=== PATIENT | male | born 1970 | race Caucasian/White ===

== ENCOUNTER 2024-03-28 21:44 | Emergency (ER) | payer OTHER ==
[~2024-03-28] VITALS: Ht 167.6 cm; Wt 93.2 kg
[2024-03-28] MEDS: SODIUM CHLORIDE 0.9% 1,000 ML IV ONE (00:15)
[2024-03-28] MEDS: OXYMETAZOLINE HCL 0.05 % NASAL SPRAY 15ML EACHNOSTRI ONE (22:15)
[2024-03-28] MEDS: SILVER NITRATE-POTAS NITRA STICK TOP ONE (22:15)
--- NOTE | 2024-03-28 22:25 | ED.PDOC ---
History of Present Illness HPI Comments 53-year-old male came to ER by EMS for syncope. Patient has history of hypertension and diabetes. Was having left-sided epistaxis earlier, so patient decided to they 3 tablets of lisinopril, assuming that his blood pressure must be a high, which caused the epistaxis. Started feeling dizzy, lightheaded the s yncopal attack, hitting the back of his head on the refrigerator. Upon arrival of paramedics, noted patient to be hypotensive at 84/50 mm Hg. 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 Cardiac: No chest pain. No palpitations. Lungs: No shortness of breath, no cough. GI: No nausea, no vomiting, no diarrhea, no constipation, no abdominal pain : No dysuria, frequency, or urgency. No hematuria. Musculoskeletal: Left 2nd toe pain Skin: No rash, no itching. Neuro: No headache, (+) dizziness, (+) syncope, no weakness Vital Signs Vital Signs Date Time Temp Pulse Resp B/P (MAP) Pulse Ox O2 Delivery O2 Flow Rate FiO2 03/29/24 04:42 96 16 112/66 (81) 03/29/24 02:46 98.1 98.1 03/29/24 00:44 98 Room Air* 0 21 Physical Exam General: Awake, alert and oriented. No acute distress. Skin: Skin in warm, dry and intact. Appropriate color for ethnicity. Nailbeds pink with no cyanosis. HEENT: The head is normocephalic and atraumatic. Conjunctivae are clear without exudates or hemorrhage. Sclera is non-icteric. EOM are intact. No signs of nystagmus. Eyelids are normal in appearance without swelling or lesions. Oral mucosa is pink and moist Neck: The neck is supple with normal range of motion. No JVD. Cardiac: Heart rate and rhythm are normal. No murmurs, gallops, or rubs are auscultated. Respiratory: No signs of respiratory distress. Lung sounds are clear in all lobes bilaterally without rales, ronchi, or wheezes. Abdominal: Abdomen is soft, non-tender without distention. Bowel sounds are present and normoactive in all four quadrants. Extremities: Left 2nd toe is obviously deformed /deviated no laceration bruising or swelling Neurological: The patient is awake, alert and oriented to person, place, and time with normal speech. Speech is clear. There is no facial asymmetry. Psychiatric: Appropriate mood and affect. Good judgement and insight. Past Medical History PAST MEDICAL HISTORY: DM, HTN Surgical History: Denies all surgeries Family History Family History: Reviewed,noncontributory to illness Social History Smoker: Non-Smoker Alcohol: Denies ETOH Use Drugs: Denies Drug Use Lives In: Home Was a procedure done? Was a procedure done?: Yes Sedation Sedation?: No Informed consent obtained: Yes (Verbal) Other Procedure Procedure Reduction of right 2nd toe distal phalanx. EKG EKG : Pulse Rate (adult): 94 Cardiac Rhythm: NSR ST: Old, Inf, Infarct Comments No STEMI Differential Dx Considerations may include: Anemia, electrolyte imbalance, hypotension, syncope, epistaxis X-Ray, Labs, Meds, VS Vital Signs Date Time Temp Pulse Resp B/P (MAP) Pulse Ox O2 Delivery O2 Flow Rate FiO2 03/29/24 04:42 96 16 112/66 (81) 03/29/24 04:00 84 03/29/24 03:09 118/70 03/29/24 02:46 98.1 90 14 118/65 (82) 98.1 03/29/24 00:55 98.1 103 16 107/58 (74) 98.1 03/29/24 00:44 84 16 98 Room Air* 0 21 03/29/24 00:00 103 03/28/24 22:25 94 03/28/24 21:57 94 03/28/24 21:48 97.8 84 16 108/62 (77) 98 Lab Test 03/29/24 01:30 03/28/24 23:15 03/28/24 22:21 Range/Units Urine Color Light-yellow Yellow Urine Clarity Clear Clear Urine pH 5.5 5.0-9.0 Urine Specific [place] 1.021 1.001-1.035 Urine Protein Negative Negative Urine Ketones 1+ H Negative Urine Blood Negative Negative /uL Urine Nitrite Negative Negative Urine Bilirubin Negative Negative Urine Urobilinogen Normal Negative mg/dL Urine Leukocyte Esterase Negative Negative /uL Urine RBC <1 0 - 3 /hpf Urine Microscopic WBC 1 0-3 /HPF Urine Squamous Epithelial Cells Few <5 /hpf Urine Bacteria Few H None Seen /hpf Urine Hyaline Casts Few 0 - 2 /lpf Urine Glucose 4+ H Normal mg/dL Troponin I High Sensitivity < 3 L < 3 L </=54 ng/L White Blood Count 11.8 H 4.4-10.8 10^3/uL Red Blood Count 3.91 L 4.5-5.90 10^6/uL Hemoglobin 12.8 L 13.5-17.5 g/dL Hematocrit 37.1 L 41.0-53.0 % Mean Corpuscular Volume 95.0 80.0-100.0 fL Mean Corpuscular Hemoglobin 32.7 H 28.0-32.0 pg Mean Corpuscular Hemoglobin Concent 34.5 32.0-36.0 g/dL Red Cell Distribution Width 12.8 11.8-14.3 % Platelet Count 219 140-450 10^3/uL Mean Platelet Volume 8.7 6.9-10.8 fL Neutrophils (%) (Auto) 70.9 37.0-80.0 % Lymphocytes (%) (Auto) 21.6 10.0-50.0 % Monocytes (%) (Auto) 6.6 0.0-12.0 % Eosinophils (%) (Auto) 0.7 0.0-7.0 % Basophils (%) (Auto) 0.2 0.0-2.0 % Neutrophils # (Auto) 8.4 1.6-8.6 10 ^3/uL Lymphocytes # (Auto) 2.5 0.4-5.4 10 ^3/uL Monocytes # (Auto) 0.8 0-1.3 10 ^3/uL Eosinophils # (Auto) 0.1 0-0.8 10 ^3/uL Basophils # (Auto) 0 0-0.2 10 ^3/uL Nucleated Red Blood Cells 0.2 % Prothrombin Time 10.9 9.3-11.8 sec Prothrombin Time INR 1.03 0.9-1.15 Sodium Level 137 136-145 mmol/L Potassium Level 4.6 3.5-5.1 mmol/L Chloride Level 103 98-107 mmol/L Carbon Dioxide Level 26 20-31 mmol/L Anion Gap 8 5-15 Blood Urea Nitrogen 23 9-23 mg/dL Creatinine 1.43 H 0.700-1.30 mg/dL Glomerular Filtration Rate Calc 58 >90 mL/min BUN/Creatinine Ratio 16.1 10.0-20.0 Serum Glucose 304 H 74-106 mg/dL Calcium Level 9.0 8.7-10.4 mg/dL Total Bilirubin 0.2 0.2-1.0 mg/dL Aspartate Amino Transferase (AST) 39 13-40 U/L Alanine Aminotransferase (ALT) 72 H 7-40 U/L Alkaline Phosphatase 62 46-116 U/L B-Type Natriuretic Peptide 2.45 0-100 pg/mL Total Protein 6.4 5.7-8.2 g/dL Albumin 3.8 3.2-4.8 g/dL Current Medications Medications (Trade) Dose Ordered Sig/Frida Route Start Time Stop Time Status Last Admin Sodium Chloride 1,000 ml @ 1,000 mls/hr Q1H ONCE IV 03/28/24 22:15 03/28/24 23:14 DC 03/28/24 00:15 Oxymetazoline HCl (Afrin) 1 spr ONCE ONCE EACHNOSTRI 03/28/24 22:15 03/28/24 22:16 DC 03/28/24 22:15 Fentanyl Citrate 50 mcg ONCE ONCE IV 03/29/24 03:00 03/29/24 03:01 DC 03/29/24 03:09 Sodium Chloride 1,000 ml @ 1,000 mls/hr Q1H ONCE IV 03/29/24 05:00 03/29/24 05:59 DC 03/29/24 05:00 Time of 1ST Reevaluation: 22:19 Reevaluation 1ST: Unchanged Patient Education/Counseling: Diagnosis, Treatment Family Education/Counseling: No Family Present Departure 1 Departure Time of Disposition: 04:51 Impression: Primary Impression: Dislocation of toe of left foot Additional Impressions: Syncope Accidental medication overdose Epistaxis Disposition: 01 HOME / SELF CARE / HOMELESS Condition: Stable Additional Instructions: ED DISCHARGE INSTRUCTIONS Instructions: Please read all instructions provided in this packet carefully. Although you have been discharged from the Emergency Department, this does not mean that you have a "clean bill of health". []No definitive diagnosis for your symptoms has been made today. It is possible that you are in the process of developing a serious illness. This is why you must return to the ED without fail if any new or worsening symptoms (especially if your symptoms include chest pain, trouble breathing, abdominal pain, fever, headache, confusion, trouble seeing, or trouble walking) It is also very important that you see a primary care doctor within the next 3-5 days to follow up. If you are unable to get an appointment, return to the ED for re-evaluation. Lightheadedness or Faintness: Care Instructions Overview Lightheadedness is a feeling that you are about to faint or "pass out." You do not feel as if you or your surroundings are moving. It is different from vertigo, which is the feeling that you or things around you are spinning or tilting. Lightheadedness usually goes away or gets better when you lie down. If lightheadedness gets worse, it can lead to a fainting spell. It is common to feel lightheaded from time to time. It may be caused by many things. These include allergies, dehydration, illness, and medicines. Lightheadedness usually is not caused by a serious problem. It often is caused by a short-lasting drop in blood pressure and blood flow to your head that occurs when you get up too quickly from a seated or lying position. Follow-up care is a bush part of your treatment and safety. Be sure to make and go to all appointments, and call your doctor if you are having problems. It's also a good idea to know your test results and keep a list of the medicines you take. How can you care for yourself at home? Lie down for 1 or 2 minutes when you feel lightheaded. After lying down, sit up slowly and remain sitting for 1 to 2 minutes before slowly standing up. Avoid movements, positions, or activities that have made you lightheaded in the past. Get plenty of rest, especially if you have a cold or flu, which can cause lightheadedness. Make sure you drink plenty of fluids, especially if you have a fever or have been sweating. Do not drive or put yourself and others in danger while you feel lightheaded. When should you call for help? Call 911 anytime you think you may need emergency care. For example, call if: You passed out (lost consciousness). You have symptoms of a stroke. These may include: Sudden numbness, tingling, weakness, or loss of movement in your face, arm, or leg, especially on only one side of your body. Sudden vision changes. Sudden trouble speaking. Sudden confusion or trouble understanding simple statements. Sudden problems with walking or balance. A sudden, severe headache that is different from past headaches. You have symptoms of a heart attack. These may include: Chest pain or pressure, or a strange feeling in the chest. Sweating. Shortness of breath. Nausea or vomiting. Pain, pressure, or a strange feeling in the back, neck, jaw, or upper belly or in one or both shoulders or arms. Lightheadedness or sudden weakness. A fast or irregular heartbeat. After you call 911, the can closing machine operator may tell you to chew 1 adult-strength or 2 to 4 low-dose aspirin. Wait for an ambulance. Do not try to drive yourself. Watch closely for changes in your health, and be sure to contact your doctor if: Your lightheadedness gets worse or does not get better with home care. Credits for Lightheadedness or Faintness: Care Instructions Current as of: September 19, 2023 Author: Eneida [employer] Staff Clinical Review Board All [employer] education is reviewed by a team that includes physicians, nurses, advanced practitioners, registered dieticians, and other healthcare professionals. Nosebleeds: Care Instructions Overview Nosebleeds are common, especially if you have colds or allergies. Many things can cause a nosebleed. Some nosebleeds stop on their own with pressure. Others need packing. Some get cauterized (sealed). If you have gauze or other packing materials in your nose, you will need to follow up with your doctor to have the packing removed. You may need more treatment if you get nosebleeds a lot. Follow-up care is a bush part of your treatment and safety. Be sure to make and go to all appointments, and call your doctor if you are having problems. It's also a good idea to know your test results and keep a list of the medicines you take. How can you care for yourself at home? If you get another nosebleed: Gently blow your nose to clear any clots. Sit up and tilt your head slightly forward. This keeps blood from going down your throat. Use your thumb and index finger to pinch the front, soft part of your nose shut for at least 15 minutes. Use a clock. Do not check to see if the bleeding has stopped before the 15 minutes are up. If the bleeding has not stopped, pinch your nose shut for another 10 to 15 minutes. Using a nasal decongestant spray such as oxymetazoline (Afrin) before pinching your nose can also help to stop the bleeding. Be safe with medicines. Read and follow all instructions on the label. When the bleeding has stopped, try not to pick, rub, or blow your nose for leighann ral hours. Avoiding these things helps keep your nose from bleeding again. To prevent nosebleeds Do not blow your nose too hard. Try not to lift or strain after a nosebleed. Raise your head on a pillow while you sleep. Put a thin layer of a saline- or water-based nasal gel, such as NasoGel, inside your nose. Put it on the septum, which divides your nostrils. This will prevent dryness that can cause nosebleeds. Use a vaporizer or humidifier to add moisture to your bedroom. Follow the directions for cleaning the machine. Do not use aspirin, ibuprofen (Advil, Motrin), or naproxen (Aleve) for 36 to 48 hours after a nosebleed unless your doctor tells you to. You can use acetaminophen (Tylenol) for pain relief. Talk to your doctor about stopping any other medicines you are taking. Some medicines may make you more likely to get a nosebleed. Do not use cold medicines or nasal sprays without first talking to your doctor. They can make your nose dry. Do not snort tobacco, drugs, or any other drying substances up your nose. When should you call for help? Call 911 anytime you think you may need emergency care. For example, call if: You passed out (lost consciousness). Call your doctor now or seek immediate medical care if: Your nose is still bleeding after you have pinched the nose shut 2 times for 15 minutes each time (30 minutes total). There is a lot of blood running down the back of your throat even after you pinch your nose and tilt your head forward. You feel weak or lightheaded. You have a nosebleed after a head injury. Watch closely for changes in your health, and be sure to contact your doctor if: You get nosebleeds often, even if they stop. You do not get better as expected. Comments 53-year-old male who presents to the emergency department after syncopal episode after taking extra lisinopril. He is given IV fluids in the emergency department. His blood pressure improved. He was noted to have no further epistaxis during the ED observation. Left 2nd toe dislocation was reduced successfully and luz elena taping applied. Patient well-appearing, nontoxic. Advised prompt follow-up with PCP, return to the ED with any new, worsening or concerning symptoms. I reviewed the following notes from the pt's past medical encounters: N/A The following tests were ordered, and results were reviewed by me: (See diagnostic results section) The following test were independently interpreted by me: N/A Additional information was gathered from interviewing the following independent historians: EMS personnel, patient's at bedside I reviewed and agreed with the following test results read by other providers: Foot x-ray I discussed treatments and results with medical personnel and: N/A Decision regarding hospitalization or escalation of hospital level of care: Risks and benefits of admission for further treatment of patient's condition was considered however due to patient's stable condition patient will be discharged to follow up closely or return to care for worsening of condition or inability to follow up. Critical Care Note Critical Care Time?: Yes (35 min-critical care time only) Critical care comment: Syncope, hypotension Stability Stability form required: No Heart Score Heart Score: Heart Score Response (Comments) Value History N/A 0 EKG N/A 0 Age N/A 0 Risk Factors N/A 0 Troponin N/A 0 Total 0 I personally scribed for CAROLE BROWN MD ([email or web address]) on 03/28/24 at 22:25. Electronically submitted by Ever Lepe ([email or web address]). I personally scribed for CAROLE BROWN MD ([email or web address]) on 03/28/24 at 22:35. Electronically submitted by Ever Lepe ([email or web address]). CAROLE BROWN MD Mar 28, 2024 22:25
[2024-03-28 22:41] LABS: Basophils # (auto) 0 10 ^3/uL (0-0.2); Basophils % (auto) 0.2 % (0.0-2.0); Eosinophils # (auto) 0.1 10 ^3/uL (0-0.8); Eosinophils % (auto) 0.7 % (0.0-7.0); Hematocrit 37.1 % (41.0-53.0); Hemoglobin 12.8 g/dL (13.5-17.5); Lymphocytes # (auto) 2.5 10 ^3/uL (0.4-5.4); Lymphocytes % (auto) 21.6 % (10.0-50.0); Mean Corpuscular Hemoglobin 32.7 pg (28.0-32.0); Mean Corpuscular Hgb Conc. 34.5 g/dL (32.0-36.0); Monocytes # (auto) 0.8 10 ^3/uL (0-1.3); Monocytes % (auto) 6.6 % (0.0-12.0); Neutrophils # (auto) 8.4 10 ^3/uL (1.6-8.6); Neutrophils % (auto) 70.9 % (37.0-80.0); Nucleated Red Blood Cells % 0.2 %; Platelet Count (auto) 219 10^3/uL (140-450); Red Blood Cells 3.91 10^6/uL (4.5-5.90); Red Cell Distribution Width 12.8 % (11.8-14.3); White Blood Cell 11.8 10^3/uL (4.4-10.8)
[2024-03-28 22:56] LABS: INR 1.03 (0.9-1.15); Prothrombin Time 10.9 sec (9.3-11.8)
[2024-03-28 22:57] LABS: Albumin 3.8 g/dL (3.2-4.8); Alkaline Phosphatase 62 U/L (46-116); Anion Gap 8 (5-15); Aspartate Aminotransferase 39 U/L (13-40); BUN/Creatinine Ratio 16.1 (10.0-20.0); Blood Urea Nitrogen 23 mg/dL (9-23); Carbon Dioxide 26 mmol/L (20-31); Chloride 103 mmol/L (98-107); Potassium 4.6 mmol/L (3.5-5.1); Sodium 137 mmol/L (136-145); Total Protein 6.4 g/dL (5.7-8.2)
[2024-03-28 22:58] LABS: Alanine Aminotransferase 72 U/L (7-40); Bilirubin, Total 0.2 mg/dL (0.2-1.0); Glucose 304 mg/dL (74-106)
--- NOTE | 2024-03-28 23:17 | DVH ---
CHEST RADIOGRAPH Indication: cp Technique: Single frontal view of the chest was obtained COMPARISON: None FINDINGS: Lines and Tubes: None Lungs: Clear. Pleura: No effusion. No pneumothorax. Cardiomediastinal contours: Unremarkable Bones: Unremarkable IMPRESSION: 1. No acute disease.
--- NOTE | 2024-03-28 23:25 | DVH ---
XY L FOOT 3 VIEW XRAY, INDICATION: 2nd toe injury TECHNICAL DATA: Frontal, oblique and lateral views were obtained of the left foot. COMPARISON: None FINDINGS: There is a dislocation of the middle phalanx of the 2nd digit. Middle phalanx is displaced laterally. I do not see any fracture fragments IMPRESSION: 1. Dislocation of the proximal interphalangeal joint of the 2nd toe.
[2024-03-29 00:44] VITALS: PULSE 84; RESP 16; O2SAT 98
[2024-03-29 01:55] LABS: Urine Bacteria FEW /hpf (None Seen); Urine Blood Negative /uL (Negative); Urine Clarity Clear (Clear); Urine Color Light-Yellow (Yellow); Urine Hyaline Cast FEW /lpf (0 - 2); Urine Protein, UAD Negative (Negative); Urine Specific Gravity 1.021 (1.001-1.035); Urine Squamous Epithelial Cell FEW /hpf (<5); Urine Urobilinogen Normal (Negative); Urine WBC 1 /HPF (0-3); Urine pH 5.5 (5.0-9.0)
[2024-03-29 02:46] VITALS: TEMP 98.1
[2024-03-29] MEDS: fentaNYL CITRATE 100 MCG/2 ML VL IV ONE (03:09)
--- NOTE | 2024-03-29 04:00 | ECG ---
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
--- NOTE | 2024-03-29 04:14 | DVH ---
XY L FOOT 2 VIEW XRAY, INDICATION: R middle toe dislocation post reduction TECHNICAL DATA: Frontal lateral views were obtained of the left foot. COMPARISON: XY L FOOT 3 VIEW XRAY on DOS: 03/28/24 IMPRESSION: There has been interval reduction of previously described dislocation of the proximal interphalangeal joint of the left 2nd digit. Alignment appears near anatomic. Small osseous fragments adjacent to th e joint space may represent tiny chip fractures.
[2024-03-29 04:42] VITALS: BP 112/66; PULSE 96; RESP 16
[2024-03-29] MEDS: SODIUM CHLORIDE 0.9% 1,000 ML IV ONE (05:00)
== END 2024-03-29 06:02 | disposition home or self-care (01) ==
LOC: ER 21:44 → EDBD 21:44 → ER 03-29 06:02
DX: S93.105A Unspecified dislocation of left toe(s), initial encounter (principal); T50.901A Poisoning by unspecified drugs, medicaments and biological substances, accidental (unintentional), initial encounter; R55 Syncope and collapse; R04.0 Epistaxis; W22.8XXA Striking against or struck by other objects, initial encounter; Y93.89 Activity, other specified; Y92.89 Other specified places as the place of occurrence of the external cause; Y99.8 Other external cause status
CPT/HCPCS: 28660; 36415; 71045; 73620; 73630; 80053; 81001; 83880; 84484; 85025; 85610; 93005; 96361; 96374; 99285; J3010; J7030